=== PATIENT | male | born 1960 | race Caucasian/White ===

== ENCOUNTER 2022-05-22 14:54 | Day surgery (SDC) | payer BC ==
[2022-05-22] MEDS ORDERED: Depo-Medrol 40 MG/ML IM ONE (14:55)
[2022-05-22] MEDS ORDERED: LIDOCAINE HCL 1% 50 MG/5 ML VL PF IJ ONE (14:55)
[2022-05-22] MEDS ORDERED: BUPIVACAINE 0.5% VIAL IJ ONE (14:55)
[2022-05-22] MEDS ORDERED: Lactated Ringers 1,000 ML IV ONE (16:45)
--- NOTE | 2022-05-22 17:10 | XRAY ---
Indication: Right shoulder and subacromial bursa injection Intraoperative fluoroscopy provided for 33 seconds. 3 digital spot images submitted for interpretation demonstrates needle tip projecting over the right glenohumeral joint superiorly. Second needle tip subacromial. Small amount of contrast injected for both needle tip placement. Correlate with intraoperative findings/report.
--- NOTE | 2022-05-23 08:42 | XRAY ---
33 seconds of fluoroscopy was used in surgery for a right intra-articular shoulder and subacromial bursa injection.
== END 2022-05-22 17:00 | disposition home or self-care (01) ==
LOC: SDC-PAIN 14:54
PROVIDERS: ATTEND Psychiatry & Neurology Pain Medicine
DX: M75.51 Bursitis of right shoulder (principal); M19.011 Primary osteoarthritis, right shoulder; Z79.899 Other long term (current) drug therapy
CPT/HCPCS: 20610; 73030; 77002; J1030; J2001; Q9966